=== PATIENT | female | born 1950 | race Caucasian/White ===

== ENCOUNTER → 2017-09-30 | Outpatient (CLI) | payer MEDICARE ==
[~2017-09-30] MED LIST: ASPIRIN81 MG PO; ATORVASTATIN CA40 MG PO; BUPROPION HCL150 M2 PO; CLONIDINE HCL0.2 MG PO; CYMBALTA60 MG PO; DEXILANT60 MG PO; ESTRADIOL1 MG PO; FAMCICLOVIR500 MG PO; GABAPENTIN100 MG PO; KEFLEX500 MG PO; LEVAQUIN500 MG PO; LEVOTHYROXINE50 MCG PO; LIDODERM700 MG TOP; LYRICA75 MG PO; METOPROLOL SUCC50 MG PO; MONTELUKAST SOD10 MG PO; NORCO 10-325 T1 EACH PO; PREMARIN0.45 MG PO; QUETIAPINE FUMA25 MG PO
--- NOTE | 2017-09-30 15:17 | Diagnostic Imaging Report ---
Left knee MRI without contrast. History: Knee pain. Decreased range of motion. Pain not responding to conservative management. Comparison: None. Technique: Multiplanar multi-sequence MRI of the knee without contrast. Findings: Medial compartment: There is a complex medial meniscus tear involving the posterior horn and body segments best seen on sagittal series 3 image 29. The medial compartmental articular cartilage surfaces are slightly thin. The medial collateral ligament complex is intact. Lateral compartment: No meniscal tear or cartilage abnormality. The LCL complex is normal. Intercondylar notch: The ACL and PCL are intact. Patellofemoral compartment: There is mild articular cartilage fraying and fissuring in the patellofemoral compartment. Extensor mechanism: The quadriceps and patellar tendons are normal. Other findings: There is a joint effusion and synovitis. There is no acute fracture, subluxation or avascular necrosis. There is a small lobulated Boyd's cyst. There is mild nonspecific prepatellar soft tissue edema. 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 Small joint effusion, mild synovitis and small Boyd's cyst. Signed by: Dr. Jhonatan Blount M.D. on 09/30/2017 3:14 PM
== END ==
LOC: MRI 13:40
PROVIDERS: ATTEND Internal Medicine
DX: S83.242A Other tear of medial meniscus, current injury, left knee, initial encounter (principal)